=== PATIENT | female | born 1970 | race Caucasian/White ===

== ENCOUNTER → 2016-10-27 08:39 | Outpatient (CLI) | payer BC ==
[2014-10-23 05:54] VITALS: BMI 20.7
[~2016-10-27 08:39] MED LIST: HYDROCODONE-APA1 TAB PO; MICROGESTIN FE1 EACH PO; TUMERIC PO
== END | disposition home or self-care (01) ==
LOC: D.US 08:39
DX: R94.5 Abnormal results of liver function studies (principal)

== ENCOUNTER → 2016-11-09 14:19 | Outpatient (CLI) | payer BC ==
[2014-10-23 05:54] VITALS: BMI 20.7
== END | disposition home or self-care (01) ==
LOC: D.MAMMO 11:00
DX: Z12.31 Encounter for screening mammogram for malignant neoplasm of breast (principal)